=== PATIENT | female | born 1980 | race African-American/Black ===

== ENCOUNTER 2016-08-22 09:37 | Emergency (ER) | payer MEDICAID ==
[2016-08-22] MEDS ORDERED: cloNIDine HCL 0.1 MG TAB PO ONE ×2 (10:15→15:45)
[2016-08-22 10:50] LABS: Urine RBC None Seen /hpf (0 - 4)
[2016-08-22 11:23] LABS: Urine Bilirubin Negative (Negative); Urine Blood Negative /uL (Negative); Urine Color Yellow (Yellow); Urine Glucose Normal (Normal); Urine Ketone Negative (Negative); Urine Nitrite Negative (Negative); Urine Squamous Epithelial Cell FEW /hpf (<5); Urine Urobilinogen Normal (Negative); Urine pH 6.5 (5.0-8.0)
[2016-08-22] MEDS ORDERED: NITROFURANTOIN (MONO) 100 mg CAP PO ONE (15:00)
[2016-08-22] MEDS ORDERED: NIFEdipine 10 MG CAP PO ONE (16:30)
[2016-08-22] MEDS ORDERED: LABETALOL HCL 5 MG/ML 4ML SYRINGE IV ONE ×2 (17:30→18:15)
[2016-08-22 18:36] VITALS: BP 134/70
== END 2016-08-22 19:05 | disposition home or self-care (01) ==
LOC: EDUNIT# 09:37 → ER 09:42
DX: F20.9 Schizophrenia, unspecified (principal); F32.9 Major depressive disorder, single episode, unspecified; F41.9 Anxiety disorder, unspecified; F17.210 Nicotine dependence, cigarettes, uncomplicated; F15.10 Other stimulant abuse, uncomplicated
CPT/HCPCS: 81001; 81025; 96374; 96376; 99284; G0434; J3490

== ENCOUNTER 2016-09-21 02:10 | Emergency (ER) | payer MEDICAID ==
[~2016-09-21] VITALS: Ht 175.3 cm; Wt 68.0 kg
[2016-09-21 03:31] LABS: Basophils # (auto) 0 uL; Basophils % (auto) 0.4 % (0.0-2.0); Eosinophils # (auto) 0 uL; Eosinophils % (auto) 0.4 % (0.0-7.0); Hematocrit 44.4 % (36.0-46.0); Hemoglobin 15.1 g/dL (12.2-16.2); Lymphocytes # (auto) 1.9 uL; Lymphocytes % (auto) 18.2 % (10.0-50.0); Mean Corpuscular Hemoglobin 30.1 pg (28.0-32.0); Mean Corpuscular Volume 88.5 fL (80.0-100.0); Mean Platelet Volume 9.3 fL (7.4-10.4); Monocytes # (auto) 0.2 uL; Monocytes % (auto) 2.1 % (0.0-12.0); Neutrophils # (auto) 8.3 uL; Neutrophils % (auto) 78.9 % (37.0-80.0); Platelet Count (auto) 336 10^3/uL (140-450); Red Cell Distribution Width 14.9 % (11.6-16.0); White Blood Cell 10.5 10^3/uL (4.4-10.8)
[2016-09-21 03:54] LABS: Albumin 3.7 g/dL (3.4-5.0); BUN/Creatinine Ratio 12.5; Calcium 8.7 mg/dL (8.5-10.1); Potassium 3.5 mmol/L (3.5-5.1)
[2016-09-21 03:56] LABS: Bilirubin, Total 0.2 mg/dL (0.2-1.0); Total Protein 7.8 g/dL (6.4-8.2)
[2016-09-21] MEDS ORDERED: SODIUM CHLORIDE 0.9% 1,000 ML IV ONE (08:39)
[2016-09-21] MEDS ORDERED: SODIUM CHLORIDE 0.9% 250 ML IV ONE (08:39)
[2016-09-21] MEDS ORDERED: LORazepam 2MG/ML-1ML VIAL IV ONE (08:45)
[2016-09-21] MEDS ORDERED: ONDANSETRON HCL 4 MG/2 ML VIAL IV ONE (08:45)
[2016-09-21 11:59] VITALS: BP 143/96
== END 2016-09-21 13:23 | disposition home or self-care (01) ==
LOC: EDBD 02:10 → ER 02:11
DX: F20.9 Schizophrenia, unspecified (principal); R10.9 Unspecified abdominal pain; Z88.0 Allergy status to penicillin; F17.210 Nicotine dependence, cigarettes, uncomplicated; F12.10 Cannabis abuse, uncomplicated; F15.10 Other stimulant abuse, uncomplicated
CPT/HCPCS: 36415; 80053; 82150; 83690; 85025; 96361; 96374; 96375; 99285; J2060; J2405; J7030; J7050